=== PATIENT | male | born 1955 | race Caucasian/White ===

== ENCOUNTER → 2016-09-03 | Outpatient (CLI) | payer OTHER ==
[2016-09-03 12:16] LABS: HEMOGLOBIN 15.1 gm/dl (14.0-17.5); RED BLOOD COUNT 5.1 M/UL (4.20-5.50); WHITE BLOOD COUNT 9.7 K/UL (4.5-11.0)
[2016-09-03 12:31] LABS: BUN/CREATININE RATIO 24 (0-10)
== END ==
LOC: LAB 10:55
PROVIDERS: Nurse Practitioner
DX: M25.541 Pain in joints of right hand (principal); M25.542 Pain in joints of left hand; M25.531 Pain in right wrist; M25.532 Pain in left wrist
CPT/HCPCS: 73110; 73130; 80053; 80061; 84436; 84443; 84480; 84550; 85025; 86039; 86140; 86431